=== PATIENT | female | born 1960 | race Caucasian/White ===

== ENCOUNTER 2017-02-02 05:06 | Emergency (ER) | payer BC ==
[~2017-02-02] VITALS: Ht 162.6 cm; Wt 81.6 kg
[2017-02-02 05:15] VITALS: BP 132/58; PULSE 89; RESP 18; TEMP 98.5; O2SAT 99
--- NOTE | 2017-02-02 05:15 | NUR ---
Patient to ER bed 3 for evaluation. Side rails up. Report given to JENNY Calderon.
--- NOTE | 2017-02-02 05:40 | NUR ---
Pt complain of back pain for the two day. and it got worse today 10/10 trobbing. Pt stated did not take any medicaiton. Pt denied SOB. Pt repositioned for comfort
--- NOTE | 2017-02-02 05:50 | NUR ---
ER Dr. Rosario at bedside examining patient.
[2017-02-02] MEDS ORDERED: fentaNYL CITRATE/PF 100 MCG/2 ML AMP IM ONE (06:00)
--- NOTE | 2017-02-02 06:35 | NUR ---
Pt was taken to radiology via aleks[facility]ar
[2017-02-02] MEDS ORDERED: traMADol HCL HCL 50 MG TABLET (ULTRAM) PO ONE (07:00)
[2017-02-02 07:37] VITALS: BP 130/57; PULSE 84; RESP 16; TEMP 98.7; O2SAT 99
--- NOTE | 2017-02-02 07:37 | NUR ---
Patient given written and verbal discharge instructions and verbalizes understanding. ER MD discussed with patient the results and treatment provided. Patient in stable condition. ID arm band removed. Rx of Flexeril, tramadol, and motrin given. Patient educated on pain management and to follow up with PMD. Pain Scale 3. Opportunity for questions provided and answered.
--- NOTE | 2017-02-02 07:38 | NUR ---
Pt states will drive home. at bedside during discharge.
== END 2017-02-02 07:37 | disposition home or self-care (01) ==
LOC: SED 05:06
DX: S39.012A Strain of muscle, fascia and tendon of lower back, initial encounter (principal); R03.0 Elevated blood-pressure reading, without diagnosis of hypertension; Z88.5 Allergy status to narcotic agent; X50.0XXA Overexertion from strenuous movement or load, initial encounter; Y93.89 Activity, other specified; Y99.8 Other external cause status; Y92.89 Other specified places as the place of occurrence of the external cause
CPT/HCPCS: 72100; 96372; 99284; J3010